=== PATIENT | male | born 1960 | race Caucasian/White ===

== ENCOUNTER 2017-01-19 04:16 | Emergency (ER) | payer OTHER ==
[2017-01-19] MEDS ORDERED: NORMAL SALINE 1000 ML 1,000 ML IV ONE (04:52)
[2017-01-19] MEDS ORDERED: ONDANSETRON HCL INJ/PF 4 MG/2 ML SDV IV ONE (04:52)
--- NOTE | 2017-01-19 04:54 | ER Document Report ---
ED GI/ - General TRAVEL OUTSIDE OF THE [place] IN LAST 30 DAYS: No <KEHINDE CHAHAL - Last Filed: 01/19/17 07:36> <SHAZIA MELISSA - Last Filed: 01/19/17 11:45> - General Chief Complaint: Abdominal Pain Stated Complaint: ABDOMINAL PAIN Time Seen by Provider: 01/19/17 04:45 Notes: Patient is a 56-year-old male who comes emergency department for chief complaint of generalized abdominal pain, vomiting whenever he eats or drinks, and no bowel movement for over 2 days. He states he has not passed any gas for 2 days either. Patient has had a small bowel obstruction in the past reportedly. He denies any abdominal surgeries however. Only past medical history reported is hypertension and hyperlipidemia. (KEHINDE CHAHAL) - Related Data Allergies/Adverse Reactions: No Known Allergies Allergy (Verified 01/19/17 06:59) Home Medications: Current Home Medications Amlodipine Besylate/Benazepril [Amlodipine-Benazepril 5-10 mg] 1 cap PO DAILY [History] Fenofibrate [Fenofibrate] 1 tab PO DAILY 01/19/17 [History] Past Medical History - General Information source: Patient - Social History Smoking Status: Never Smoker Frequency of alcohol use: None Drug Abuse: None Lives with: Family Family History: Reviewed & Not Pertinent Patient has suicidal ideation: No - Past Medical History Cardiac Medical History: Reports: Hx Hypercholesterolemia, Hx Hypertension Endocrine Medical History: Reports: Hx Diabetes Mellitus Type 2 - Borderline Renal/ Medical History: Denies: Hx Peritoneal Dialysis Past Surgical History: Reports: Other - Colonoscopy - Immunizations Hx Diphtheria, Pertussis, Tetanus Vaccination: Yes <KEHINDE CHAHAL - Last Filed: 01/19/17 07:36> Review of Systems - Review of Systems Constitutional: No symptoms reported EENT: No symptoms reported Cardiovascular: No symptoms reported Respiratory: No symptoms reported Gastrointestinal: See HPI Genitourinary: No symptoms reported Male Genitourinary: No symptoms reported Musculoskeletal: No symptoms reported Skin: No symptoms reported Hematologic/Lymphatic: No symptoms reported Neurological/Psychological: No symptoms reported <KEHINDE CHAHAL - Last Filed: 01/19/17 07:36> Physical Exam - Vital signs Interpretation: Normal - General General appearance: Appears well, Anxious In distress: Mild - patient appears mildly uncomfortable, belching frequently - HEENT Head: Normocephalic, Atraumatic Eyes: Normal Conjunctiva: Normal Extraocular movements intact: Yes Eyelashes: Normal Pupils: PERRL - Respiratory Respiratory status: No respiratory distress Chest status: Nontender Breath sounds: Normal. No: Decreased air movement Chest palpation: Normal - Cardiovascular Rhythm: Regular. No: Tachycardia Heart sounds: Normal auscultation, S1 appreciated, S2 appreciated Murmur: No - Abdominal Inspection: Normal Distension: No distension Bowel sounds: Normal Tenderness: Tender - generalized abdominal tenderness, no specific area of guarding, no rigidity Organomegaly: No organomegaly - Back Back: Normal, Nontender. No: Tender, Vertebra tenderness - Extremities General upper extremity: Normal inspection, Nontender, Normal color, Normal ROM , Normal temperature General lower extremity: Normal inspection, Nontender, Normal color, Normal ROM , Normal temperature, Normal weight bearing. No: Minnie's sign - Neurological Neuro grossly intact: Yes Cognition: Normal Orientation: AAOx4 Tye Coma Scale Eye Opening: Spontaneous Beatriz Coma Scale Verbal: Oriented Tye Coma Scale Motor: Obeys Commands Tye Coma Scale Total: 15 Speech: Normal Motor strength normal: LUE, RUE, LLE, RLE Sensory: Normal - Psychological Associated symptoms: Normal affect, Normal mood - Skin Skin Temperature: Warm Skin Moisture: Dry Skin Color: Normal <KEHINDE CHAHAL - Last Filed: 01/19/17 07:36> Course - Laboratory Result Diagrams: 01/19/17 05:22 01/19/17 05:22 <KEHINDE CHAHAL - Last Filed: 01/19/17 07:36> - Laboratory Result Diagrams: 01/19/17 05:22 01/19/17 05:22 <SHAZIA MELISSA - Last Filed: 01/19/17 11:45> - Re-evaluation Re-evalutation: Patient much more comfortable on reevaluation, belching and nausea have resolved , CBC, chemistry, lipase unremarkable. Concerning history with no flatus or bowel movement for almost 3 days with history of bowel obstruction, however acute abdominal series is nonspecific. Patient will be further evaluated with CAT scan of the abdomen and pelvis with contrast. Patient is very agreeable with this. Patient introduced to Shazia Melissa PA-C at bedside, patient again belching and having discomfort, will give additional medications. (KEHINDE CHAHAL) 01/19/17 11:39 CT reports no obstruction, lipase is elevated, pt has not vomited here since I have taken over care and he is comfortable. Will discharge with return precautions. (SHAZIA MELISSA) - Vital Signs Vital signs: Temp Pulse Resp BP Pulse Ox 98.2 F 91 18 147/79 H 94 01/19/17 04:22 01/19/17 04:22 01/19/17 11:01 01/19/17 11:01 01/19/17 11:01 - Laboratory Laboratory results interpreted by me: 01/19/17 01/19/17 01/19/17 05:22 05:22 08:35 Seg Neutrophils % 79.2 H Lymphocytes % 12.2 L Glucose 137 H Lipase 431.1 H Urine Urobilinogen 4.0 H Urine Ascorbic Acid 40 H Discharge <KEHINDE CHAHAL - Last Filed: 01/19/17 07:36> <SHAZIA MELISSA - Last Filed: 01/19/17 11:45> - Discharge Clinical Impression: Abdominal pain Qualifiers: Abdominal location: unspecified location Qualified Code(s): R10.9 - Unspecified abdominal pain Nausea & vomiting Qualifiers: Vomiting type: unspecified Vomiting Intractability: non-intractable Qualified Code(s): R11.2 - Nausea with vomiting, unspecified Pancreatitis Qualifiers: Chronicity: acute Pancreatitis type: unspecified pancreatitis type Acute pancreatitis complication: no infection or necrosis Qualified Code(s): K85.90 - Acute pancreatitis without necrosis or infection, unspecified Condition: Stable Disposition: HOME, SELF-CARE Instructions: Pancreatitis ([facility], [facility]) Additional Instructions: Return immediately for any new or worsening symptoms. Follow up with primary care provider, call tomorrow to make followup appointment. Prescriptions: Ondansetron [Zofran Odt 4 mg Tablet] 1 - 2 tab PO Q4H PRN #15 tab.rapdis PRN Reason: For Nausea/Vomiting Oxycodone HCl/Acetaminophen [Percocet 5-325 mg Tablet] 1 tab PO ASDIR PRN #15 tab PRN Reason: Referrals: ZHANE MARRUFO MD [ACTIVE STAFF] - Follow up as needed
[2017-01-19 05:37] LABS: ABSOLUTE LYMPHOCYTES (AUTO) 1.2 10^3/uL (0.5-4.7); ABSOLUTE MONOCYTES (AUTO) 0.8 10^3/uL (0.1-1.4); ABSOLUTE NEUT (AUTO) 8.1 10^3/uL (1.7-8.2); BASOPHILS % (AUTO) 0.4 % (0-2); EOSINOPHILS % (AUTO) 0.1 % (0-6); HEMATOCRIT 46.7 % (37.9-51.0); HGB HCT DIFFERENCE 1.3; LYMPHOCYTES % (AUTO) 12.2 % (13-45); MEAN CORPUSCULAR HEMOGLOBIN 30.2 pg (27.0-33.4); MEAN CORPUSCULAR HGB CONC 34.2 g/dL (32.0-36.0); MEAN CORPUSCULAR VOLUME 88 fl (80-97); MONOCYTES % (AUTO) 8.1 % (3-13); RED BLOOD COUNT 5.29 10^6/uL (4.35-5.55); RED CELL DISTRIBUTION WIDTH 13.2 % (11.5-14.0); SEGMENTED NEUTROPHILS % (AUTO) 79.2 % (42-78); WHITE BLOOD COUNT 10.2 10^3/uL (4.0-10.5)
[2017-01-19 05:54] LABS: ALANINE AMINOTRANSFERASE 43 U/L (21-72); ALBUMIN 4.9 g/dL (3.5-5.0); ALKALINE PHOSPHATASE 84 U/L (38-126); ANION GAP 14 (5-19); ASPARTATE AMINO TRANSFERASE 24 U/L (17-59); BILIRUBIN,DIRECT 0.4 mg/dL (0.0-0.4); BILIRUBIN,TOTAL 1.1 mg/dL (0.2-1.3); BLOOD UREA NITROGEN 18 mg/dL (7-20); CARBON DIOXIDE 23 mmol/L (22-30); CHLORIDE 104 mmol/L (98-107); CREATININE RESULT 1.04 mg/dL (0.52-1.25); GLUCOSE 137 mg/dL (75-110); LIPASE 431.1 U/L (23-300); POTASSIUM 4.3 mmol/L (3.6-5.0); SODIUM 140.8 mmol/L (137-145); TOTAL PROTEIN 8.1 g/dL (6.3-8.2)
--- NOTE | 2017-01-19 06:15 | RADIOLOGY REPORT (SQ) ---
EXAM DESCRIPTION: ACUTE ABDOMEN SERIES COMPLETED DATE/TIME: 01/19/2017 5:57 am REASON FOR STUDY: vomiting, no bowel movement, hx of SBO COMPARISON: None. NUMBER OF VIEWS: Three views. 4 images. TECHNIQUE: Frontal chest, supine abdomen and upright/decubitus abdomen radiographic images acquired. LIMITATIONS: None. FINDINGS: CHEST: Lungs clear of infiltrates. Mild interstitial markings. FREE AIR: None. No abnormal gas collections. BOWEL GAS PATTERN: Nonobstructive pattern. No dilated loops or air fluid levels. CALCIFICATIONS: No suspicious calcifications. HARDWARE: None in the abdomen. SOFT TISSUES: No gross mass or suggestion of organomegaly. BONES: No acute fracture. No worrisome bone lesions. Mild disc desiccation. OTHER: No other significant finding. IMPRESSION: NO RADIOGRAPHIC EVIDENCE FOR ACUTE ABDOMINAL DISEASE. TECHNICAL DOCUMENTATION: JOB ID: [id number] [employer]- All Rights Reserved
[2017-01-19] MEDS ORDERED: METOCLOPRAMIDE HCL INJ/PF 10 MG/2 ML SDV IV ONE (07:19)
[2017-01-19] MEDS ORDERED: DIPHENHYDRAMINE HCL 50 MG/ML VIAL IV ONE (07:19)
[2017-01-19 09:12] LABS: APPEARANCE,URINE CLEAR; BILIRUBIN,URINE NEGATIVE (NEGATIVE); GLUCOSE, URINE NEGATIVE (NEGATIVE); KETONES,URINE NEGATIVE (NEGATIVE); LEUKOCYTE ESTERASE,URINE NEGATIVE (NEGATIVE); NITRITE,URINE NEGATIVE (NEGATIVE); PROTEIN,URINE NEGATIVE (NEGATIVE); URINE SPECIFIC GRAVITY 1.024
--- NOTE | 2017-01-19 10:20 | RADIOLOGY REPORT (SQ) ---
EXAM DESCRIPTION: CT ABD/PELVIS WITH IV ORAL COMPLETED DATE/TIME: 01/19/2017 9:35 am REASON FOR STUDY: abd pain, vomiting, no bowel movements COMPARISON: None. TECHNIQUE: CT scan of the abdomen and pelvis performed using helical scanning technique with dynamic intravenous contrast injection. No oral contrast. Images reviewed with lung, soft tissue, and bone windows. Reconstructed coronal and sagittal MPR images reviewed. Delayed images for evaluation of the urinary system also acquired. All images stored on PACS. All CT scanners at this facility use dose modulation, iterative reconstruction, and/or weight based d osing when appropriate to reduce radiation dose to as low as reasonably achievable (ALARA). [facility]: Dose Right [facility]: CareDose [facility]: Dose Right [facility]: Teradose 4D [facility]: CoinJar CONTRAST TYPE AND DOSE: contrast/concentration: Isovue 370.00 mg/ml; Total Contrast Delivered: 97.0 ml; Total Saline Delivered: 43.0 ml RENAL FUNCTION: BUN 18 creatinine 1.04 RADIATION DOSE: Up-to-date CT equipment and radiation dose reduction techniques were employed. CTDIv ol: 14.1 - 18.0 mGy. DLP: 1646 mGy-cm.. LIMITATIONS: None. FINDINGS: LOWER CHEST: No significant findings. Dependent subsegmental atelectasis. No nodules or infiltrates. LIVER: Liver demonstrates diffuse decreased attenuation likely representing fatty deposition. 1.4 cm right hepatic lobe cyst. No worrisome focal liver lesions. No intrahepatic biliary dilatation. Th e portal and hepatic veins are patent. SPLEEN: Normal size. No focal lesions. PANCREAS: No masses. No significant calcifications. No adjacent inflammation or peripancreatic fluid collections. Pancreatic duct not dilated. GALLBLADDER: No identified stones by CT criteria. No inflammatory changes to suggest cholecystitis. ADRENAL GLANDS: No significant masses or asymmetry. RIGHT KIDNEY AND URETER: No solid masses. No significant calcifications. No hydronephrosis or hyd roureter. LEFT KIDNEY AND URETER: No solid masses. No significant calcifications. No hydronephrosis or hydr oureter. AORTA AND VESSELS: Scattered calcific and fibrofatty atheromatous disease of the aorta and iliac yovanny phil is noted. No dissection. No aneurysm. The mesenteric and renal arteries are patent. RETROPERITONEUM: No retroperitoneal adenopathy, hemorrhage or masses. BOWEL AND PERITONEAL CAVITY: No masses or inflammatory changes. No free fluid or peritoneal masses. APPENDIX: Normal. PELVIS: No mass or free fluid. Normal bladder. ABDOMINAL WALL: No masses. No hernias. BONES: No significant or acute findings. OTHER: No other significant finding. IMPRESSION: 1. No acute abnormality identified within the abdomen pelvis. 2. Hepatic steatosis. No focal liver lesions. TECHNICAL DOCUMENTATION: JOB ID: [id number] Quality ID # [id number]: Final reports with documentation of one or more dose reduction techniques (e.g., Au tomated exposure control, adjustment of the mA and/or kV according to patient size, use of iterative reconstruction technique) 2010 [employer]- All Rights Reserved
[2017-01-19 12:22] VITALS: BP 150/88
== END 2017-01-19 12:23 | disposition home or self-care (01) ==
LOC: ER 04:16
DX: K85.90 Acute pancreatitis without necrosis or infection, unspecified (principal); R10.84 Generalized abdominal pain; R19.4 Change in bowel habit; R14.2 Eructation; R11.2 Nausea with vomiting, unspecified; R74.8 Abnormal levels of other serum enzymes; I10 Essential (primary) hypertension; Z87.19 Personal history of other diseases of the digestive system
CPT/HCPCS: 99284; 96361; 96374; 96375; 36415; 83690; 85025; 80053; 81001; 74022; 74177; J1200; J2765; J2405; J7030